=== PATIENT | male | born 1985 | race Caucasian/White ===

== ENCOUNTER 2017-11-03 22:32 | Emergency (ER) | payer OTHER ==
[~2017-11-03 22:32] MED LIST: ISOVUE-370 76%-LOCM 1 ML ONE
[2017-11-03 23:13] LABS: #Eosinphils 0.1 thou/uL (0.0-0.7); #Lymphocytes 1.7 thou/uL (1.20-3.40); #Monocytes 0.4 thou/uL (0.11-0.59); #Neutrophils 2.3 thou/uL (1.40-6.50); %Basophils 0.3 % (0.0-1.0); %Eosinophils 2.2 % (0.0-10.0); %Lymphocytes 36.9 % (21.0-51.0); %Monocytes 9.1 % (0.0-10.0); %Neutrophils 51.5 % (42.0-75.0); Hemoglobin 13.2 g/dL (14.0-18.0); Mean Corpuscular HGB CONC 36.4 g/dL (32.0-36.0); Mean Corpuscular Hemoglobin 31.5 pg (27.0-31.0); Mean Corpuscular Volume 86.6 fL (78.0-98.0); Mean Platelet Volume 9.1 fL (7.4-10.4); Platelet Count 151 thou/uL (130-400); Red Blood Cell (RBC) Count 4.17 mill/uL (4.70-6.10); White Blood Cell (WBC) Count 4.5 thou/uL (4.8-10.8)
[2017-11-03 23:26] LABS: Glucose 130 mg/dL (70-105)
[2017-11-03 23:31] LABS: ALT (SGPT) 30 U/L (8-55); AST (SGOT) 29 U/L (5-34); Albumin 4.6 g/dL (3.5-5.0); Alkaline Phosphatase 68 U/L (40-150); Anion Gap 14 mmol/L (10-20); BUN (Urea Nitrogen) 19 mg/dL (8.9-20.6); Bilirubin, Total 0.5 mg/dL (0.2-1.2); Calc. Creatinine Clearance 0 mL/min (70-130); Calcium 9.6 mg/dL (7.8-10.44); Carbon Dioxide 23 mmol/L (22-29); Chloride 108 mmol/L (98-107); Estimated GFR-MDRD 89; Globulin 2.5 g/dL (2.4-3.5); Potassium 3.8 mmol/L (3.5-5.1); Protein, Total 7.1 g/dL (6.0-8.3); Sodium 141 mmol/L (136-145)
[2017-11-04] MEDS ORDERED: Ondansetron HCl/PF 4 MG/2 ML Vial ONE (00:16)
[2017-11-04 00:45] LABS: Bilirubin Negative (Negative); Blood, Urine Negative (Negative); Clarity CLEAR (Clear); Glucose, Urine (Dipstick) Negative (Negative); Leukocyte Negative (Negative); Nitrite Negative (Negative); Protein, Urine (Dipstick) Negative (Neg-Trace); Specific Gravity, Urine 1.044 (1.002-1.036); Urobilinogen 0.2 mg/dL (0.2-1.0); pH, Urine 5.5 (5.0-9.0)
[2017-11-04] MEDS ORDERED: Ketorolac Tromethamine 30 MG/ML VIAL ONE (01:22)
--- NOTE | 2017-11-04 07:35 | CT ---
CT OF THE ABDOMEN AND PELVIS: DATE: 11/04/17. COMPARISON: None. HISTORY: Left upper quadrant pain with nausea. TECHNIQUE: Serial axial CT imaging at 5 mm intervals from lung bases through pubic symphysis with IV contrast. Coronal reformatted imaging obtained. FINDINGS: The imaged lung bases demonstrate no acute findings. There is no free intraperitoneal air or fluid a ppreciated. The liver, spleen, gallbladder, and pancreas are grossly unremarkable. Bilateral adrenal glands and the right kidney demonstrate an unremarkable appearance. There is a cyst emanating from the mid pole of the left kidney measuring 5.8 cm. Limited assessment of the bowel without oral contrast media demonstrates no evidence for focal inflam matory change or obstruction. The appendix is visualized and appears within normal limits. No lymphadenopathy is appreciated within the abdomen or pelvis. Review of the osseous structures demonstrates no worrisome lytic or blastic lesion. There is postope rative hardware within the proximal right femur, incompletely imaged. IMPRESSION: No evidence for free intraperitoneal air or small bowel obstruction. Prominent mid pole left renal c yst. POS: [id number]
== END 2017-11-04 01:30 | disposition home or self-care (01) ==
LOC: ERS 22:32
DX: N28.1 Cyst of kidney, acquired (principal)
CPT/HCPCS: 36415; 74177; 80053; 81003; 83690; 85025; 96361; 96374; 96375; J1885; J2270; J2405